=== PATIENT | male | born 1960 | race Caucasian/White ===

== ENCOUNTER 2021-04-06 15:19 | Observation (INO) | payer MEDICAID ==
--- NOTE | 2021-04-06 15:42 | EDM.PDOC ---
ED HPI GENERAL MEDICAL PROBLEM - General Chief Complaint: Skin Complaint Stated Complaint: Nonhealing wound to the abdomen Time Seen by Provider: 04/06/21 15:30 Source of Information: Reports: Patient, EMS History Limitations: Reports: No Limitations - History of Present Illness INITIAL COMMENTS - FREE TEXT/NARRATIVE: Patient states he was seen by home health today in regards to an ongoing abdominal skin wound that is been going on for the last several months. He just finished 2 weeks worth of antibiotics about 2 weeks ago Keflex and states it did not help any. Home health today told him to come through the ER to get examined. Home health called and gave us report with the patient stating he had some shortness of breath as well. Per the patient he has no chest pain or shortness of breath other than his chronic shortness of breath this is nothing new nor is it gotten any worse. He states he has been eating drinking okay with no issues he denies any fever or chills he admits he does not go to the doctor as he is supposed to but he is okay with trying to get this thing cleared up now. He has no other complaints. Says blood sugars have been relatively normal Duration: Chronic Location: Reports: Abdomen Quality: Reports: Other (Negative pain) Improves with: Reports: None Worsens with: Reports: None Associated Symptoms: Reports: No Other Symptoms - Related Data Allergies Allergy/AdvReac Type Severity Reaction Status Date / Time No Known Allergies Allergy Verified 04/06/21 16:48 Home Meds: Home Meds Aspirin 81 mg PO DAILY 04/06/21 [History] Cholecalciferol (Vitamin D3) [Vitamin D3] 25 mcg PO BID 04/06/21 [History] Doxazosin [Doxazosin Mesylate] 8 mg PO BEDTIME 04/06/21 [History] Escitalopram Oxalate [Lexapro] 20 mg PO DAILY 04/06/21 [History] Ferrous Sulfate [Iron] 325 mg PO DAILY 04/06/21 [History] Fluticasone Propionate [Flonase] 1 spray NASBOTH BID PRN 04/06/21 [History] Insuln Asp Prot/Insulin Aspart [NovoLOG Mix 70-30] 60 unit SQ BID 04/06/21 [History] Loratadine [Claritin] 10 mg PO DAILY PRN 04/06/21 [History] Losartan Potassium 100 mg PO DAILY 04/06/21 [History] Metoprolol Succinate [Toprol XL 100mg] 100 mg PO DAILY 04/06/21 [History] Multivitamin-Min/Iron/FA/Vit K [Multi-Day Plus Minerals Tablet] 1 each PO DAILY 04/06/21 [History] Spironolactone [Aldactone] 50 mg PO DAILY 04/06/21 [History] atorvaSTATin [Lipitor] 10 mg PO BEDTIME 04/06/21 [History] metFORMIN HCl [Metformin HCl] 1,000 mg PO BID 04/06/21 [History] ED ROS GENERAL - Review of Systems Review Of Systems: See Below Constitutional: Reports: No Symptoms HEENT: Reports: No Symptoms Respiratory: Reports: No Symptoms, Shortness of Breath, Other (Shortness of breath is chronic no new changes patient actually states his legs look better last couple days then a half in regards to pedal edema) Cardiovascular: Reports: No Symptoms Endocrine: Reports: No Symptoms GI/Abdominal: Reports: No Symptoms : Reports: No Symptoms Musculoskeletal: Reports: No Symptoms Skin: Reports: Wound (See HPI), Other Neurological: Reports: No Symptoms Psychiatric: Reports: No Symptoms Hematologic/Lymphatic: Reports: No Symptoms Immunologic: Reports: No Symptoms ED EXAM, SKIN/RASH Exam: See Below Exam Limited By: No Limitations General Appearance: Alert, WD/WN, No Apparent Distress Eye Exam: Bilateral Eye: Normal Inspection, PERRL Ears: Hearing Grossly Normal Nose: Normal Inspection, Normal Mucosa, No Blood, Other (mmm) Throat/Mouth: Normal Inspection, Normal Lips, Normal Teeth, Normal Gums, Normal Oropharynx, Normal Voice, No Airway Compromise Head: Atraumatic, Normocephalic Neck: Normal Inspection, Supple, Non-Tender, Full Range of Motion Respiratory/Chest: No Respiratory Distress, Lungs Clear, Normal Breath Sounds, No Accessory Muscle Use, Chest Non-Tender Cardiovascular: Normal Peripheral Pulses, Regular Rate, Rhythm, No Edema, No Gallop, No JVD, No Murmur, No Rub GI/Abdominal: Normal Bowel Sounds, Soft, Non-Tender, No Distention, Other (Patient has a significant abdominal wall hernia there is approximately volleyball size macerated erythematous wound at the inferior aspect of the hernia/abdomen patient has positive bowel sounds throughout all quadrants and no tenderness palpation). No: No Mass, Guarding, Rigid, Rebound, Tender (Male) Exam: No Hernia, Other (No noted ulceration rashes to the pannus area or the area) Back Exam: Full Range of Motion Extremities: Normal Inspection, Normal Range of Motion, Non-Tender, Normal Capillary Refill. No: Pedal Edema (+1 bilateral pedal edema) Neurological: Alert, Oriented, CN II-XII Intact, Normal Cognition, No Motor/Sensory Deficits Psychiatric: Normal Affect, Normal Mood Skin: Wound/Incision Location, Skin: Abdomen Characteristics: Erythematous Associated features: Inflammation, Weeping. No: Warmth, Tenderness, Induration, Lymphangitis, Rough Lymphatic: No Adenopathy Course - Vital Signs Text/Narrative:: will order wound cultures BC BMP CRP White blood cell count within normal limits BMP within normal limits CRP is mildly elevated Spoke with the primary care provider she would like the patient to possibly be evaluated by bariatric surgery or general surgery and wound care in [place] if possible or at another facility if any availability or if nothing else could be obtained possible admission here [place] does not have any beds availability tried [facility] no beds available Spoke with [place] surgeon Dr. Pace he states this is more than they can handle with their capabilities he recommended trying to get the patient seen by Dr. Parker in [place] Spoke with Dr. Tracy Rahman she will put the patient in November for further consultation with surgery/wound care Last Recorded V/S: Last Vital Signs Temp 37.1 C 04/06/21 15:25 Pulse 59 L 04/06/21 15:25 Resp 24 H 04/06/21 15:25 BP 143/79 H 04/06/21 15:25 Pulse Ox 96 04/06/21 15:25 - Orders/Labs/Meds Orders: Active Orders 24 hr Category Date Time Status CULTURE WOUND [RM] Stat Lab 04/06/21 15:42 Received Labs: Laboratory Tests 04/06/21 04/06/21 Range/Units 15:28 15:28 WBC 6.6 (4.0-10.0) x10^3/uL RBC 4.60 (4.5-6.0) x10^6/uL Hgb 12.0 L (14.0-18.0) g/dL Hct 37.1 L (40.0-52.0) % MCV 80.7 (78.0-93.0) fL MCH 26.1 (26.0-32.0) pg MCHC 32.3 (32.0-36.0) g/dL RDW Coeff of Cristina 14.8 (10.0-15.0) % Plt Count 370 (130-400) x10^3/uL Immature Gran % (Auto) 0.20 (0.00-0.43) % Neut % (Auto) 64.6 (50.0-80.0) % Lymph % (Auto) 17.0 L (25.0-50.0) % [place] % (Auto) 13.3 H (2.0-11.0) % Eos % (Auto) 4.4 H (0.0-4.0) % Baso % (Auto) 0.5 (0.2-1.2) % Neut # (Auto) 4.3 (1.8-7.7) x10^3/uL Lymph # (Auto) 1.1 (1.0-4.8) x10^3/uL [place] # (Auto) 0.9 H (0.0-0.8) x10^3/uL Eos # (Auto) 0.3 (0.0-0.5) x10^3/uL Baso # (Auto) 0.0 (0.0-0.2) x10^3/uL Immature Gran # (Auto) 0.01 (0.00-0.07) x10^3/uL Sodium 139 (136-145) mmol/L Potassium 4.1 (3.5-5.1) mmol/L Chloride 101 (98-107) mmol/L Carbon Dioxide 33 H (21-32) mmol/L Anion Gap 9.1 (5-15) mmol/L BUN 16 (7-18) mg/dL Creatinine 1.0 (0.70-1.30) mg/dL Est Cr Clr Drug Dosing TNP Estimated GFR (MDRD) > 60 Glucose 90 (70-99) mg/dL Calcium 9.0 (8.5-10.1) mg/dL C-Reactive Protein 2.6 H (<=0.9) mg/dL Departure - Departure Time of Disposition: 17:50 Disposition: Refer to Observation Condition: Good Clinical Impression: Chronic abdominal wound infection, Abdominal hernia - Discharge Information Forms: ED Department Discharge Sepsis Event Note (ED) - Focused Exam Vital Signs: Vital Signs Temp Pulse Resp BP Pulse Ox 04/06/21 15:25 37.1 C 59 L 24 H 143/79 H 96 - Problem List & Annotations (1) Abdominal hernia SNOMED Code(s): 41743526 Code(s): K46.9 - UNSPECIFIED ABDOMINAL HERNIA WITHOUT OBSTRUCTION OR GANGRENE Status: Acute Current Visit: Yes (2) Chronic abdominal wound infection SNOMED Code(s): 009693880 Code(s): S31.109A - UNSP OPN WND ABD WALL, UNSP Q W/O PENET PERIT CAV, INIT; L08.9 - LOCAL INFECTION OF THE SKIN AND SUBCUTANEOUS TISSUE, UNSP Status: Acute Current Visit: Yes - My Orders Last 24 Hours: My Active Orders 04/06/21 15:42 CULTURE WOUND [RM] Stat - Assessment/Plan Last 24 Hours: My Active Orders 04/06/21 15:42 CULTURE WOUND [RM] Stat
[2021-04-06 16:50] LABS: ANION GAP 9.1 mmol/L (5-15); CHLORIDE,CL 101 mmol/L (98-107); SODIUM,NA 139 mmol/L (136-145)
[2021-04-06] MEDS ORDERED: Non-Formulary Medication 1 Each (Insuln Asp Prot/Insulin Aspart [Novolog Mix 70-30] 100 UN SQ SCH (20:15)
--- NOTE | 2021-04-06 20:20 | PCM.HP.2 ---
H&P History of Present Illness - General Date of Service: 04/06/21 Admit Problem/Dx: Admission Diagnosis/Problem Admission Diagnosis/Problem Wound of abdomen Source of Information: Patient History Limitations: Reports: No Limitations - History of Present Illness Initial Comments - Free Text/Narative: Mr. Worthy is a 60 yo male with PMH of a large abdominal wall hernia, obesity, HTN, anxiety/depression, anemia, and peripheral polyneuropathy who presented to the ER for evaluation of his abdominal wound at the recommendation of home health and his PCP. He notes that he has had the wound for at least 2 months. He has rare pain but it is not painful overall. He denies any fever or chills. He is not sure if he has redness and if the redness has been getting worse. Home health has been coming 1-2 times/week to do wound cares. He has had the hernia for years. He denies any concerns for constipation or diarrhea. This is the first time he has left his home in at least 2 years. - Related Data Allergies/Adverse Reactions: Allergies Allergy/AdvReac Type Severity Reaction Status Date / Time No Known Allergies Allergy Verified 04/06/21 16:48 Home Medications: Home Meds Aspirin 81 mg PO DAILY 04/06/21 [History] Cholecalciferol (Vitamin D3) [Vitamin D3] 25 mcg PO BID 04/06/21 [History] Doxazosin [Doxazosin Mesylate] 8 mg PO BEDTIME 04/06/21 [History] Escitalopram Oxalate [Lexapro] 20 mg PO DAILY 04/06/21 [History] Ferrous Sulfate [Iron] 325 mg PO DAILY 04/06/21 [History] Fluticasone Propionate [Flonase] 1 spray NASBOTH BID PRN 04/06/21 [History] Insuln Asp Prot/Insulin Aspart [NovoLOG Mix 70-30] 60 unit SQ BID 04/06/21 [History] Loratadine [Claritin] 10 mg PO DAILY PRN 04/06/21 [History] Losartan Potassium 100 mg PO DAILY 04/06/21 [History] Metoprolol Succinate [Toprol XL 100mg] 100 mg PO DAILY 04/06/21 [History] Multivitamin-Min/Iron/FA/Vit K [Multi-Day Plus Minerals Tablet] 1 each PO DAILY 04/06/21 [History] Spironolactone [Aldactone] 50 mg PO DAILY 04/06/21 [History] atorvaSTATin [Lipitor] 10 mg PO BEDTIME 04/06/21 [History] metFORMIN HCl [Metformin HCl] 1,000 mg PO BID 04/06/21 [History] Past Medical History HEENT History: Reports: None Cardiovascular History: Reports: High Cholesterol, Hypertension Respiratory History: Reports: Sleep Apnea Gastrointestinal History: Reports: None Genitourinary History: Reports: None Musculoskeletal History: Reports: None Neurological History: Reports: Neuropathy, Diabetic Psychiatric History: Reports: Anxiety, Depression Endocrine/Metabolic History: Reports: Diabetes, Type II, Obesity/BMI 30+ Hematologic History: Reports: Anemia Immunologic History: Reports: None Oncologic (Cancer) History: Reports: None Dermatologic History: Reports: None - Infectious Disease History Infectious Disease History: Reports: None - Past Surgical History HEENT Surgical History: Reports: Tonsillectomy Musculoskeletal Surgical History: Reports: Shoulder Surgery (right x 3) Social & Family History - Family History Oncologic: Reports: Lung - Tobacco Use Tobacco Use Status *Q: Never Tobacco User - Caffeine Use Caffeine Use: Reports: Coffee - Alcohol Use Alcohol Use History: No Alcohol Use in Last Twelve Months: No - Recreational Drug Use Recreational Drug Use: No - Living Situation & Occupation Living situation: Reports: Single, Alone Occupation: Retired H&P Review of Systems - Review of Systems: Review Of Systems: See Below General: Reports: No Symptoms HEENT: Reports: No Symptoms Pulmonary: Reports: No Symptoms Cardiovascular: Reports: No Symptoms Gastrointestinal: Reports: No Symptoms Genitourinary: Reports: No Symptoms Musculoskeletal: Reports: No Symptoms Skin: Reports: Wound Psychiatric: Reports: No Symptoms Exam - Exam Exam: See Below - Vital Signs Vital Signs: Last Vital Signs Temp 36.8 C 04/06/21 19:19 Pulse 60 04/06/21 19:19 Resp 20 04/06/21 19:19 BP 131/66 04/06/21 19:19 Pulse Ox 97 04/06/21 19:19 Weight: 197.313 kg - Exam General: Alert, Oriented, Cooperative HEENT: Conjunctiva Clear, Mucosa Moist & [place], Posterior Pharynx Clear, Pupils Equal, Pupils Reactive, TMs Clear Neck: Supple, Trachea Midline. No: Lymphadenopathy, Thyromegaly Lungs: Clear to Auscultation, Normal Respiratory Effort Cardiovascular: Regular Rate, Regular Rhythm, Normal S1, Normal S2 GI/Abdominal Exam: Normal Bowel Sounds, Soft, Non-Tender, No Organomegaly, Hernia (large ventral hernia) Extremities: Normal Inspection, Non-Tender, Pedal Edema (non-pitting bilateral) Peripheral Pulses: 2+: Radial (L), Radial (R) Skin: Warm, Dry, Intact Neuro Extensive - Mental Status: Alert, Oriented x3 - Patient Data Lab Results Last 24 hrs: Laboratory Results - last 24 hr 04/06/21 04/06/21 04/06/21 Range/Units 15:28 15:28 18:00 WBC 6.6 (4.0-10.0) x10^3/uL RBC 4.60 (4.5-6.0) x10^6/uL Hgb 12.0 L (14.0-18.0) g/dL Hct 37.1 L (40.0-52.0) % MCV 80.7 (78.0-93.0) fL MCH 26.1 (26.0-32.0) pg MCHC 32.3 (32.0-36.0) g/dL RDW Coeff of Cristina 14.8 (10.0-15.0) % Plt Count 370 (130-400) x10^3/uL Immature Gran % (Auto) 0.20 (0.00-0.43) % Neut % (Auto) 64.6 (50.0-80.0) % Lymph % (Auto) 17.0 L (25.0-50.0) % [place] % (Auto) 13.3 H (2.0-11.0) % Eos % (Auto) 4.4 H (0.0-4.0) % Baso % (Auto) 0.5 (0.2-1.2) % Neut # (Auto) 4.3 (1.8-7.7) x10^3/uL Lymph # (Auto) 1.1 (1.0-4.8) x10^3/uL [place] # (Auto) 0.9 H (0.0-0.8) x10^3/uL Eos # (Auto) 0.3 (0.0-0.5) x10^3/uL Baso # (Auto) 0.0 (0.0-0.2) x10^3/uL Immature Gran # (Auto) 0.01 (0.00-0.07) x10^3/uL Sodium 139 (136-145) mmol/L Potassium 4.1 (3.5-5.1) mmol/L Chloride 101 (98-107) mmol/L Carbon Dioxide 33 H (21-32) mmol/L Anion Gap 9.1 (5-15) mmol/L BUN 16 (7-18) mg/dL Creatinine 1.0 (0.70-1.30) mg/dL Est Cr Clr Drug Dosing TNP Estimated GFR (MDRD) > 60 Glucose 90 (70-99) mg/dL Calcium 9.0 (8.5-10.1) mg/dL C-Reactive Protein 2.6 H (<=0.9) mg/dL SARS CoV-2 RNA Rapid NUHA Negative (NEGATIVE) Result Diagrams: 04/06/21 15:28 04/06/21 15:28 Sepsis Event Note - Evaluation Sepsis Screening Result: No Definite Risk - Focused Exam Vital Signs: Vital Signs Temp Temp Pulse Resp BP Pulse Ox 04/06/21 19:19 36.8 C 60 20 131/66 97 04/06/21 15:25 37.1 C 59 L 24 H 143/79 H 96 *Q Meaningful Use (ADM) - VTE *Q VTE Anticoagulation Contraindications: Med/TX Not Indicated/Need - Problem List (1) Chronic abdominal wound infection SNOMED Code(s): 529089172 ICD Code: S31.109A - UNSP OPN WND ABD WALL, UNSP Q W/O PENET PERIT CAV, INIT; L08.9 - LOCAL INFECTION OF THE SKIN AND SUBCUTANEOUS TISSUE, UNSP Status: Chronic Current Visit: Yes (2) Abdominal hernia SNOMED Code(s): 90587952 ICD Code: K46.9 - UNSPECIFIED ABDOMINAL HERNIA WITHOUT OBSTRUCTION OR GANGRENE Status: Chronic Current Visit: Yes Qualifiers: Hernia type: ventral Obstruction and gangrene presence: without obstruction or gangrene Qualified Code(s): K43.9 - Ventral hernia without obstruction or gangrene (3) Obesity SNOMED Code(s): 870347003, 621024537 ICD Code: E66.9 - OBESITY, UNSPECIFIED Status: Chronic Current Visit: Yes Qualifiers: Obesity type: due to excess calories Obesity classification: adult class 3 (BMI >= 40) Serious obesity comorbidity presence: with serious comorbidity (4) Diabetes SNOMED Code(s): 09362522 ICD Code: E11.9 - TYPE 2 DIABETES MELLITUS WITHOUT COMPLICATIONS Status: Chronic Current Visit: Yes Qualifiers: Diabetes mellitus type: type 2 Diabetes mellitus long-term insulin use: with terminal operator use Diabetes mellitus complication status: with neurologic complications Diabetes mellitus complication detail: with polyneuropathy Qu alified Code(s): E11.42 - Type 2 diabetes mellitus with diabetic polyneuropathy; Z79.4 - custodial (current) use of insulin (5) Hypertension SNOMED Code(s): 92877244 ICD Code: I10 - ESSENTIAL (PRIMARY) HYPERTENSION Status: Chronic Current Visit: Yes Qualifiers: Hypertension type: primary hypertension Qualified Code(s): I10 - Essential (primary) hypertension (6) Anxiety with depression SNOMED Code(s): 417825658 ICD Code: F41.8 - OTHER SPECIFIED ANXIETY DISORDERS Status: Chronic Current Visit: Yes (7) Anemia SNOMED Code(s): 413287739 ICD Code: D64.9 - ANEMIA, UNSPECIFIED Status: Chronic Current Visit: Yes Qualifiers: Anemia type: unspecified type Qualified Code(s): D64.9 - Anemia, unspecifie d (8) Peripheral neuropathy SNOMED Code(s): 816333080 ICD Code: G62.9 - POLYNEUROPATHY, UNSPECIFIED Status: Chronic Current Visit: Yes Qualifiers: Peripheral neuropathy type: polyneuropathy associated with underlying disease Qualified Code(s): G63 - Polyneuropathy in diseases classified elsewhere Problem List Initiated/Reviewed/Updated: Yes Orders Last 24hrs: Active Orders 24 hr Category Date Time Status Patient Status [ADT] Stat ADT 04/06/21 17:54 Active Accu Check [Blood Glucose Check, Bedside] [RC] 07,17 Care 04/07/21 07:00 Active Notify Provider Vital Signs [RC] ASDIRECTED Care 04/06/21 20:11 Ordered Oxygen Therapy [RC] PRN Care 04/06/21 20:11 Ordered Up With Assistance [RC] ASDIRECTED Care 04/06/21 20:11 Ordered VTE/DVT Education [RC] PER UNIT ROUTINE Care 04/06/21 20:11 Ordered Vital Signs [RC] Q4H Care 04/06/21 20:11 Ordered [employer] Diet [DIET] Diet 04/06/21 Dinner Ordered CULTURE WOUND [RM] Stat Lab 04/06/21 15:42 Received Aspirin Med 04/07/21 08:00 Ordered 81 mg PO DAILY Doxazosin [Cardura] Med 04/06/21 20:13 Ordered 8 mg PO BEDTIME Escitalopram Oxalate [Lexapro] Med 04/07/21 08:00 Ordered 20 mg PO DAILY Insuln Asp Prot/Insulin Aspart [NovoLOG Mix 70-30] Med 04/06/21 20:15 Ordered 60 unit SQ BID Losartan Potassium [Losartan Potassium] Med 04/07/21 08:00 Ordered 100 mg PO DAILY Metoprolol Succinate [Toprol XL 100mg] Med 04/07/21 08:00 Ordered 100 mg PO DAILY Spironolactone [Aldactone] Med 04/07/21 08:00 Ordered 50 mg PO DAILY atorvaSTATin [Lipitor] Med 04/06/21 20:13 Ordered 10 mg PO BEDTIME metFORMIN HCl [Metformin HCl] Med 04/06/21 20:15 Ordered 1,000 mg PO BID Anticoagulation Contraindications VTE [AST] Per Unit Oth 04/06/21 20:11 Ordered Routine Resuscitation Status Routine Resus Stat 04/06/21 20:11 Ordered Medication Orders Aspirin (Aspirin 81 Mg Tab.Chew) 81 mg PO DAILY ISELA Atorvastatin Calcium (Atorvastatin 10 Mg Tab) 10 mg PO BEDTIME ISELA Non-Formulary Medication (Doxazosin [Cardura]) 8 mg PO BEDTIME ISELA Non-Formulary Medication (Escitalopram Oxalate [Lexapro]) 20 mg PO DAILY ISELA Non-Formulary Medication (Insuln Asp Prot/Insulin Aspart [Novolog Mix 70-30]) 60 unit SQ BID ISELA Non-Formulary Medication (Losartan Potassium [Losartan Potassium]) 100 mg PO DAILY ISELA Non-Formulary Medication (Metformin Hcl [Metformin Hcl]) 1,000 mg PO BID ISELA Assessment/Plan Comment:: 60 yo male admitted with a chronic abdominal wound related to a large hernia. No acute changes or evidence of infection. #1 Chronic abdominal wound #2 Ventral hernia - No evidence of active infection at this time. - Therefore, will not do any antibiotics. - This is more a chronic pressure wound related to his hernia. - Ideally will get him transferred to somewhere he can have wound consults and hernia surgery. Unclear if this will be able to done urgently but plan is to attempt this given patient's social situation and refusal to leave home for a number of years until now. - Will plan to keep wound clean/dry/covered with non-adherent gauze. #3 Obesity #4 Diabetes #5 HTN #6 Anxiety with depression #7 Anemia #8 Peripheral polyneuropathy - Hemoglobin stable. - Will check glucose BID. - Continue home medications except vitamins. Patient will be admitted to obs as he does not meet acute criteria. Discharge timing depends on ability to get him somewhere with specialty care. Continue home meds except vitamins and flonase. Code status is full - discussed on admission. No role for pharmacologic VTE prophylaxis due to anticipated short admission as well as patient being at his usual functional status. - Mortality Measure Prognosis:: Good
[2021-04-06] MEDS ORDERED: Insulin Glarg,Human.Rec.Analog 100 Unit/ML SUBCUT ONE ×2 (20:31→21:00)
[2021-04-06] MEDS ORDERED: Glucagon,Human Recombinant 1 MG Vial IM PRN (20:31)
[2021-04-06] MEDS ORDERED: 50% Dextrose in Water 50 ML Syringe IVPUSH PRN (20:31)
[2021-04-06] MEDS: Doxazosin 4 MG Tab PO SCH (20:42)
[2021-04-06] MEDS: metFORMIN 500 MG Tab PO SCH (20:43)
[2021-04-06] MEDS: atorvaSTATin 10 MG Tab PO SCH (20:43)
[2021-04-07] MEDS: metFORMIN 500 MG Tab PO SCH ×2 (07:41→17:59)
[2021-04-07] MEDS: Spironolactone 25 MG Tab PO SCH (07:41)
[2021-04-07] MEDS: Aspirin 81 MG Tab.Chew PO SCH (07:42)
[2021-04-07] MEDS: Citalopram 20 MG Tab PO SCH (07:42)
[2021-04-07] MEDS: Losartan 50 MG Tab PO SCH (07:42)
[2021-04-07] MEDS: Metoprolol Succinate 50 MG Tab.ER PO SCH (07:43)
--- NOTE | 2021-04-07 10:02 | CT ---
[id number] CT/CT Abdomen Pelvis WO IV EXAM: CT Abdomen Pelvis WO IV CLINICAL DATA: ABDOMINAL WALL HERNIA. COMPARISON STUDY: None. FINDINGS: Large ventral abdominal wall herniation containing majority of the bowel. This extends beyond the field of view of this examination. 92 x 52 x 61 mm hypodense lesion in the liver. Punctate area of mineralization along the superior medial aspect of the lesion. Although incompletely evaluated without contrast, internal mineralization can be seen with hemangioma. However hepatic neoplasm is not excluded on this examination. Right adrenal gland is normal. Right-sided nonobstructing nephrolithiasis. Largest calculus measures up to 9 mm. Left kidney demonstrates an exophytic 9 mm mass with lobulated. Density is similar to that of water suggesting a cyst. 20 x 25 x 29 mm retroperitoneal mass left of midline at the level of the left kidney most consistent with retroperitoneal lymphadenopathy. 40 x 46 x 44 mm mass in the rectum right of midline. Density is higher than that of water. Etiology is nonspecific. Differential diagnosis includes mesorectal lymphadenopathy. Cholelithiasis. No evidence of acute cholecystitis. IMPRESSION: Large bowel containing ventral abdominal wall herniation. Solid left retroperitoneal and mesorectal masses well. Findings are nonspecific but could represent lymphadenopathy. No obvious primary neoplasm identified. However, there is a 9 cm liver mass that is incompletely evaluated by lack of contrast. Additional evaluation is recommended. Consider liver protocol CT examination with without contrast the abdomen/pelvis. Bebeto Mora MD 04/07/21 1001 Thank you for allowing us to participate in the care of your patient.
--- NOTE | 2021-04-07 12:55 | PCM.PN ---
- General Info Date of Service: 04/07/21 Admission Dx/Problem (Free Text): Admission Diagnosis/Problem Admission Diagnosis/Problem Wound of abdomen Subjective Update: Ryan is a 60-year-old male with a past medical history of well-controlled type 2 diabetes, morbid obesity, hypertension, anxiety and depression who was ad admitted under observation status on 04/06/2021 for continued evaluation and treatment of his abdominal wound. Patient first noticed the wound in January thought that it was secondary to a couple scratches. Wound has continued to advance. He has asked been followed with home health for wound cares. We actually did do a trial of antibiotics outpatient as well after hearing from the home health nurses that they thought that it was infected. He did not have any response to this. I was updated last week that the wound was not responding to at home therapies and it appeared to be worsening. Upon home health arriving yesterday they noted that there is a lot of purulent drainage; decision was made to transfer him to the ER for further evaluation. Overall, evaluation in the ER was normal/negative other than the large wound overlying his ventral hernia. No abnormalities were noted on his blood work other than a mildly elevated CRP. He was admitted under observation status. He has done well overnight with no complaints today. I did call and speak with Dr. Castle (general surgery in [place]) who is known for undertaking complicated abdominal wall hernias. Agreed that we need to get a CT scan for possible perioperative planning. Did discuss that his BMI 60.2. CT scan was obtained this morning and was reviewed with Ryan on rounds over lunch. Did discuss that there is a large ventral wall hernia containing the majority of the bowel; this did extend but beyond the [id number] of the exam. I also discussed with him that there is multiple incidentalomas seen including a 9.2 x 5.2 x 6.1 cm hypodense lesion in the liver as well as some smaller lesions noted throughout the left retroperitoneal area as well as near the re ctum just right of the midline that are suspicious for lymphadenopathy. Discussed with her that I would likely want to do lab test to evaluate these lesions more detail. - Patient Data Vitals - Most Recent: Last Vital Signs Temp 97.9 F 04/07/21 09:57 Pulse 57 L 04/07/21 09:57 Resp 20 04/07/21 09:57 BP 104/59 L 04/07/21 09:57 Pulse Ox 95 04/07/21 09:57 Weight - Most Recent: 436 lb I&O - Last 24 Hours: Intake & Output 04/06/21 04/07/21 04/07/21 22:59 06:59 14:59 Intake Total 220 480 Balance 220 480 Lab Results Last 24 Hours: Laboratory Results - last 24 hr 04/06/21 04/06/21 04/06/21 Range/Units 15:28 15:28 18:00 WBC 6.6 (4.0-10.0) x10^3/uL RBC 4.60 (4.5-6.0) x10^6/uL Hgb 12.0 L (14.0-18.0) g/dL Hct 37.1 L (40.0-52.0) % MCV 80.7 (78.0-93.0) fL MCH 26.1 (26.0-32.0) pg MCHC 32.3 (32.0-36.0) g/dL RDW Coeff of Cristina 14.8 (10.0-15.0) % Plt Count 370 (130-400) x10^3/uL Immature Gran % (Auto) 0.20 (0.00-0.43) % Neut % (Auto) 64.6 (50.0-80.0) % Lymph % (Auto) 17.0 L (25.0-50.0) % [place] % (Auto) 13.3 H (2.0-11.0) % Eos % (Auto) 4.4 H (0.0-4.0) % Baso % (Auto) 0.5 (0.2-1.2) % Neut # (Auto) 4.3 (1.8-7.7) x10^3/uL Lymph # (Auto) 1.1 (1.0-4.8) x10^3/uL [place] # (Auto) 0.9 H (0.0-0.8) x10^3/uL Eos # (Auto) 0.3 (0.0-0.5) x10^3/uL Baso # (Auto) 0.0 (0.0-0.2) x10^3/uL Immature Gran # (Auto) 0.01 (0.00-0.07) x10^3/uL Sodium 139 (136-145) mmol/L Potassium 4.1 (3.5-5.1) mmol/L Chloride 101 (98-107) mmol/L Carbon Dioxide 33 H (21-32) mmol/L Anion Gap 9.1 (5-15) mmol/L BUN 16 (7-18) mg/dL Creatinine 1.0 (0.70-1.30) mg/dL Est Cr Clr Drug Dosing TNP Estimated GFR (MDRD) > 60 Glucose 90 (70-99) mg/dL POC Glucose (70-99) mg/dL Calcium 9.0 (8.5-10.1) mg/dL C-Reactive Protein 2.6 H (<=0.9) mg/dL SARS CoV-2 RNA Rapid NUHA Negative (NEGATIVE) 04/06/21 04/07/21 04/07/21 Range/Units 20:42 01:55 06:24 WBC (4.0-10.0) x10^3/uL RBC (4.5-6.0) x10^6/uL Hgb (14.0-18.0) g/dL Hct (40.0-52.0) % MCV (78.0-93.0) fL MCH (26.0-32.0) pg MCHC (32.0-36.0) g/dL RDW Coeff of Cristina (10.0-15.0) % Plt Count (130-400) x10^3/uL Immature Gran % (Auto) (0.00-0.43) % Neut % (Auto) (50.0-80.0) % Lymph % (Auto) (25.0-50.0) % [place] % (Auto) (2.0-11.0) % Eos % (Auto) (0.0-4.0) % Baso % (Auto) (0.2-1.2) % Neut # (Auto) (1.8-7.7) x10^3/uL Lymph # (Auto) (1.0-4.8) x10^3/uL [place] # (Auto) (0.0-0.8) x10^3/uL Eos # (Auto) (0.0-0.5) x10^3/uL Baso # (Auto) (0.0-0.2) x10^3/uL Immature Gran # (Auto) (0.00-0.07) x10^3/uL Sodium (136-145) mmol/L Potassium (3.5-5.1) mmol/L Chloride (98-107) mmol/L Carbon Dioxide (21-32) mmol/L Anion Gap (5-15) mmol/L BUN (7-18) mg/dL Creatinine (0.70-1.30) mg/dL Est Cr Clr Drug Dosing Estimated GFR (MDRD) Glucose (70-99) mg/dL POC Glucose 105 H 97 113 H (70-99) mg/dL Calcium (8.5-10.1) mg/dL C-Reactive Protein (<=0.9) mg/dL SARS CoV-2 RNA Rapid NUHA (NEGATIVE) Med Orders - Current: Current Medications Aspirin (Aspirin 81 Mg Tab.Chew) 81 mg PO DAILY [facility] Last Admin: 04/07/21 07:42 Dose: 81 mg Documented by: Atorvastatin Calcium (Atorvastatin 10 Mg Tab) 10 mg PO BEDTIME [facility] Last Admin: 04/06/21 20:43 Dose: 10 mg Documented by: Citalopram Hydrobromide (Citalopram 20 Mg Tab) 40 mg PO DAILY [facility] Last Admin: 04/07/21 07:42 Dose: 40 mg Documented by: Dextrose/Water (50% Dextrose In Water 50 Ml Syringe) 50 ml IVPUSH ASDIRECTED PRN PRN Reason: Hypoglycemia Doxazosin Mesylate (Doxazosin 4 Mg Tab) 8 mg PO BEDTIME [facility] Last Admin: 04/06/21 20:42 Dose: 8 mg Documented by: Glucagon (Glucagon,Human Recombinant 1 Mg Vial) 1 mg IM ASDIRECTED PRN PRN Reason: Hypoglycemia Losartan Potassium (Losartan 50 Mg Tab) 100 mg PO DAILY [facility] Last Admin: 04/07/21 07:42 Dose: 100 mg Documented by: Metformin HCl (Metformin 500 Mg Tab) 1,000 mg PO BIDMEALS [facility] Last Admin: 04/07/21 07:41 Dose: 1,000 mg Documented by: Metoprolol Succinate (Metoprolol Succinate 50 Mg Tab.Er) 100 mg PO DAILY [facility] Last Admin: 04/07/21 07:43 Dose: 100 mg Documented by: Non-Formulary Medication (Insuln Asp Prot/Insulin Aspart [Novolog Mix 70-30]) 60 unit SQ BID ISELA Spironolactone (Spironolactone 25 Mg Tab) 50 mg PO DAILY [facility] Last Admin: 04/07/21 07:41 Dose: 50 mg Documented by: Discontinued Medications Insulin Glargine (Insulin Glarg,Human.Rec.Analog 100 Unit/Ml) 30 unit SUBCUT ONETIME ONE Stop: 04/06/21 20:32 Last Admin: 04/06/21 21:12 Dose: Not Given Documented by: Insulin Glargine (Insulin Glarg,Human.Rec.Analog 100 Unit/Ml) 20 unit SUBCUT ONETIME ONE Stop: 04/06/21 21:01 Last Admin: 04/06/21 21:01 Dose: Not Given Documented by: - Patient Data Lab Results Last 24 hrs: Laboratory Results - last 24 hr 04/06/21 04/06/21 04/06/21 Range/Units 15:28 15:28 18:00 WBC 6.6 (4.0-10.0) x10^3/uL RBC 4.60 (4.5-6.0) x10^6/uL Hgb 12.0 L (14.0-18.0) g/dL Hct 37.1 L (40.0-52.0) % MCV 80.7 (78.0-93.0) fL MCH 26.1 (26.0-32.0) pg MCHC 32.3 (32.0-36.0) g/dL RDW Coeff of Cristina 14.8 (10.0-15.0) % Plt Count 370 (130-400) x10^3/uL Immature Gran % (Auto) 0.20 (0.00-0.43) % Neut % (Auto) 64.6 (50.0-80.0) % Lymph % (Auto) 17.0 L (25.0-50.0) % [place] % (Auto) 13.3 H (2.0-11.0) % Eos % (Auto) 4.4 H (0.0-4.0) % Baso % (Auto) 0.5 (0.2-1.2) % Neut # (Auto) 4.3 (1.8-7.7) x10^3/uL Lymph # (Auto) 1.1 (1.0-4.8) x10^3/uL [place] # (Auto) 0.9 H (0.0-0.8) x10^3/uL Eos # (Auto) 0.3 (0.0-0.5) x10^3/uL Baso # (Auto) 0.0 (0.0-0.2) x10^3/uL Immature Gran # (Auto) 0.01 (0.00-0.07) x10^3/uL Sodium 139 (136-145) mmol/L Potassium 4.1 (3.5-5.1) mmol/L Chloride 101 (98-107) mmol/L Carbon Dioxide 33 H (21-32) mmol/L Anion Gap 9.1 (5-15) mmol/L BUN 16 (7-18) mg/dL Creatinine 1.0 (0.70-1.30) mg/dL Est Cr Clr Drug Dosing TNP Estimated GFR (MDRD) > 60 Glucose 90 (70-99) mg/dL POC Glucose (70-99) mg/dL Calcium 9.0 (8.5-10.1) mg/dL C-Reactive Protein 2.6 H (<=0.9) mg/dL SARS CoV-2 RNA Rapid NUHA Negative (NEGATIVE) 04/06/21 04/07/21 04/07/21 Range/Units 20:42 01:55 06:24 WBC (4.0-10.0) x10^3/uL RBC (4.5-6.0) x10^6/uL Hgb (14.0-18.0) g/dL Hct (40.0-52.0) % MCV (78.0-93.0) fL MCH (26.0-32.0) pg MCHC (32.0-36.0) g/dL RDW Coeff of Cristina (10.0-15.0) % Plt Count (130-400) x10^3/uL Immature Gran % (Auto) (0.00-0.43) % Neut % (Auto) (50.0-80.0) % Lymph % (Auto) (25.0-50.0) % [place] % (Auto) (2.0-11.0) % Eos % (Auto) (0.0-4.0) % Baso % (Auto) (0.2-1.2) % Neut # (Auto) (1.8-7.7) x10^3/uL Lymph # (Auto) (1.0-4.8) x10^3/uL [place] # (Auto) (0.0-0.8) x10^3/uL Eos # (Auto) (0.0-0.5) x10^3/uL Baso # (Auto) (0.0-0.2) x10^3/uL Immature Gran # (Auto) (0.00-0.07) x10^3/uL Sodium (136-145) mmol/L Potassium (3.5-5.1) mmol/L Chloride (98-107) mmol/L Carbon Dioxide (21-32) mmol/L Anion Gap (5-15) mmol/L BUN (7-18) mg/dL Creatinine (0.70-1.30) mg/dL Est Cr Clr Drug Dosing Estimated GFR (MDRD) Glucose (70-99) mg/dL POC Glucose 105 H 97 113 H (70-99) mg/dL Calcium (8.5-10.1) mg/dL C-Reactive Protein (<=0.9) mg/dL SARS CoV-2 RNA Rapid NUHA (NEGATIVE) Result Diagrams: 04/06/21 15:28 04/06/21 15:28 Sepsis Event Note - Evaluation Sepsis Screening Result: No Definite Risk - Focused Exam Vital Signs: Vital Signs Temp Temp Pulse Pulse Resp BP BP 04/07/21 09:57 97.9 F 57 L 20 104/59 L 04/07/21 07:43 64 100/54 L 04/07/21 07:42 100/54 L 04/07/21 06:35 97.4 F 64 18 99/54 L 04/07/21 02:00 98.2 F 72 18 100/64 Pulse Ox 04/07/21 09:57 95 04/07/21 07:43 04/07/21 07:42 04/07/21 06:35 96 04/07/21 02:00 95 - Problem List & Annotations (1) Stage II pressure ulcer SNOMED Code(s): 404262614 Code(s): L89.92 - PRESSURE ULCER OF UNSPECIFIED SITE, STAGE 2 Status: Acute Current Visit: Yes (2) Abdominal hernia SNOMED Code(s): 42812274 Code(s): K46.9 - UNSPECIFIED ABDOMINAL HERNIA WITHOUT OBSTRUCTION OR GANGRENE Status: Chronic Current Visit: Yes Qualifiers: Hernia type: ventral Obstruction and gangrene presence: without obstruction or gangrene Qualified Code(s): K43.9 - Ventral hernia without obstruction or gangrene - Problem List Review Problem List Initiated/Reviewed/Updated: Yes - Plan Plan:: 60 yo male admitted with a chronic abdominal wound related to a large hernia. No acute changes or evidence of infection. #1 Chronic abdominal wound, Stage 2 pressure ulcer #2 Ventral hernia - No evidence of active infection at this time; no abx indicated Plan: -Spoke with Dr. Castle in [place]; CT scan obtained, awaiting call/message back in regards to care of the hernia as ultimately this will need to be fixed -Daily washing, semiocclusive dressing (hydrogels?) to be reapplied daily -Discussed that we are unlikely to be transferring urgently in the coming days this will likely require coordinated outpatient followup #3 Incidental Liver mass and lymphadenopathy - See on CT scan. Findings discussed with patient on rounds Plan: - CMP and CEA ordered today to further evaluate - Will likely need MRI, biopsy for further evaluation. Chronic: Obesity Diabetes HTN Anxiety with depression Anemia Peripheral polyneuropathy - Hemoglobin stable. - Will check glucose BID. - Continue home medications except vitamins. CODE: FULL DVT: patient ambulatory, short-term admit Diet: Diabetic Disposition: Plan for 1 more midnight under observation status for continued planning in regards to plan of care moving forward.
[2021-04-07 13:42] LABS: CHLORIDE,CL 99 mmol/L (98-107); SODIUM,NA 138 mmol/L (136-145)
[2021-04-07 13:53] LABS: ANION GAP 14.5 mmol/L (5-15)
[2021-04-07] MEDS: Doxazosin 4 MG Tab PO SCH (19:34)
[2021-04-07] MEDS: atorvaSTATin 10 MG Tab PO SCH (19:35)
[2021-04-08] MEDS: Aspirin 81 MG Tab.Chew PO SCH (07:43)
[2021-04-08] MEDS: metFORMIN 500 MG Tab PO SCH (07:44)
[2021-04-08] MEDS: Citalopram 20 MG Tab PO SCH (07:45)
[2021-04-08] MEDS: Losartan 50 MG Tab PO SCH (07:45)
[2021-04-08] MEDS: Spironolactone 25 MG Tab PO SCH (07:45)
[2021-04-08] MEDS: Metoprolol Succinate 50 MG Tab.ER PO SCH (07:45)
--- NOTE | 2021-04-08 10:06 | PCM.DCSUM1 ---
Discharge Summary - Hospital Course Free Text/Narrative:: Ryan is a 60-year-old male with a past medical history of well-controlled type 2 diabetes, morbid obesity, hypertension, anxiety and depression who was ad admitted under observation status on 04/06/2021 for continued evaluation and treatment of his abdominal wound. Patient first noticed the wound in January thought that it was secondary to a couple scratches. Wound has continued to advance. He has asked been followed with home health for wound cares. We actually did do a trial of antibiotics outpatient as well after hearing from the home health nurses that they thought that it was infected. He did not have any response to this. I was updated last week that the wound was not responding to at home therapies and it appeared to be worsening. Upon home health arriving yesterday they noted that there is a lot of purulent drainage; decision was made to transfer him to the ER for further evaluation. Overall, evaluation in the ER was normal/negative other than the large wound overlying his ventral hernia. No abnormalities were noted on his blood work other than a mildly elevated CRP. He was admitted under observation status. He has done well overnight with no complaints today. I did call and speak with Dr. Castle (general surgery in [place]) who is known for undertaking complicated abdominal wall hernias. Unfortunately, after reviewing the CT he does not feel like it be able to undertake Ryan's case due to the large size as well as the fact that the hernias contains almost all of his bowels. Did recommend that we potentially refer to the [facility] or [place] for further specialty care of this. This morning I reached out to the naval architect specialist at [facility] to get further instruction on plan of care for his abdominal wound they did recommend doing aVashewash daily, applying Xeroform within the wound, Biotene over top of this and then an ABD dressing. They recommend daily dressings of this. They also recommended potentially putting an abdominal binder on to try to relieve the pressure. They have had similar patients in the past and would not necessarily call this a pressure ulcer but more so secondary to the stretching of the skin. Also recommended not letting tap water or shower water into the wound as this may introduce other pathogens. If he does develop any green to blue-tinged discharge which would be concerning for Pseudomonas they would recommend switching from a Vashewash to acetic acid wash. Lastly, we did discuss that the incidental findings on the CT scan of the liver mass as well as the other 2 lymph nodes will need to be worked up in more detail. Thankfully, his CEA came back at 1.3 which is well below the upper limit of normal for her testing. His AST and ALT were both normal as well. His albumin is a little bit low at 2.5 which will delay wound healing. We will encourage him to increase his protein intake at home. Ultimately, I will be messaging interventional radiology to take a look at his images for consideration of tissue biopsy. We will see him for a clinic visit in about 2 weeks time. This will likely need to be a video visit. - Discharge Data Discharge Date: 04/08/21 Discharge Disposition: Home, W Home Health Agency 06 Condition: Good - Referral to Home Health Date of Face to Face Encounter: 04/08/21 Reason for Homebound Status: Inability to leave the home without assistance Primary Care Physician: Caite Garcia MD Skilled Need: Nursing/wound cares, nurse aid, PT/OT - Discharge Diagnosis/Problem(s) (1) Stage II pressure ulcer SNOMED Code(s): 718340082 ICD Code: L89.92 - PRESSURE ULCER OF UNSPECIFIED SITE, STAGE 2 Status: Acute Current Visit: Yes (2) Abdominal hernia SNOMED Code(s): 71858402 ICD Code: K46.9 - UNSPECIFIED ABDOMINAL HERNIA WITHOUT OBSTRUCTION OR GANGRENE Status: Chronic Current Visit: Yes Qualifiers: Hernia type: ventral Obstruction and gangrene presence: without obstruction or gangrene Qualified Code(s): K43.9 - Ventral hernia without obstruction or gangrene - Discharge Plan Home Medications: Home Meds Aspirin 81 mg PO DAILY 04/06/21 [History] Cholecalciferol (Vitamin D3) [Vitamin D3] 25 mcg PO BID 04/06/21 [History] Doxazosin [Cardura] 8 mg PO BEDTIME 04/06/21 [History] Escitalopram Oxalate [Lexapro] 20 mg PO DAILY 04/06/21 [History] Ferrous Sulfate [Iron] 325 mg PO DAILY 04/06/21 [History] Fluticasone Propionate [Flonase] 1 spray NASBOTH BID PRN 04/06/21 [History] Insuln Asp Prot/Insulin Aspart [NovoLOG Mix 70-30] 60 unit SQ BID 04/06/21 [History] Loratadine [Claritin] 10 mg PO DAILY PRN 04/06/21 [History] Losartan Potassium 100 mg PO DAILY 04/06/21 [History] Metoprolol Succinate [Toprol XL 100mg] 100 mg PO DAILY 04/06/21 [History] Multivitamin-Min/Iron/FA/Vit K [Multi-Day Plus Minerals Tablet] 1 tab PO DAILY 04/06/21 [History] Spironolactone [Aldactone] 50 mg PO DAILY 04/06/21 [History] atorvaSTATin [Lipitor] 10 mg PO BEDTIME 04/06/21 [History] metFORMIN HCl [Metformin HCl] 1,000 mg PO BID 04/06/21 [History] hydroCHLOROthiazide [Hydrochlorothiazide] 25 mg PO DAILY 04/07/21 [History] Forms: ED Department Discharge Referrals: Catie Garcia MD [Primary Care Provider] - 04/19/21 1:30 pm (You have a follow up appt. with Dr. Eulalia Garcia on April 19, 2021 at 1:30pm---[facility]. Please wear a mask to your appt.) - Discharge Summary/Plan Comment DC Time >30 min.: Yes (40min: coordination of care ) Total # of Minutes for Discharge Time: 40 - General Info Functional Status: Reports: Pain Controlled - Review of Systems General: Reports: No Symptoms HEENT: Reports: No Symptoms Pulmonary: Reports: Shortness of Breath (chronic) Cardiovascular: Reports: No Symptoms Gastrointestinal: Reports: No Symptoms Genitourinary: Reports: No Symptoms Musculoskeletal: Reports: No Symptoms - Patient Data Vitals - Most Recent: Last Vital Signs Temp 96.4 F L 04/08/21 09:37 Pulse 54 L 04/08/21 09:37 Resp 17 04/08/21 09:37 BP 121/62 04/08/21 09:37 Pulse Ox 94 L 04/08/21 09:37 Weight - Most Recent: 436 lb I&O - Last 24 hours: Intake & Output 04/07/21 04/08/21 04/08/21 22:59 06:59 14:59 Intake Total 240 200 240 Balance 240 200 240 Lab Results - Last 24 hrs: Laboratory Results - last 24 hr 04/07/21 04/07/21 04/07/21 Range/Units 13:15 13:15 16:42 Sodium 138 (136-145) mmol/L Potassium 4.5 (3.5-5.1) mmol/L Chloride 99 (98-107) mmol/L Carbon Dioxide 29 (21-32) mmol/L Anion Gap 14.5 (5-15) mmol/L BUN 16 (7-18) mg/dL Creatinine 1.0 (0.70-1.30) mg/dL Est Cr Clr Drug Dosing 84.71 mL/min Estimated GFR (MDRD) > 60 Glucose 131 H (70-99) mg/dL POC Glucose 115 H (70-99) mg/dL Calcium 8.9 (8.5-10.1) mg/dL Corrected Calcium 10.1 (8.5-10.1) mg/dL Total Bilirubin 0.4 (0.2-1.0) mg/dL AST 10 L (15-37) U/L ALT 11 L (16-63) U/L Alkaline Phosphatase 67 (46-116) U/L Total Protein 7.0 (6.4-8.2) g/dL Albumin 2.5 L (3.4-5.0) g/dL Globulin 4.5 Albumin/Globulin Ratio 0.56 Carcinoembryonic Ag 1.3 (0.0-3.0) ng/mL 04/08/21 Range/Units 06:24 Sodium (136-145) mmol/L Potassium (3.5-5.1) mmol/L Chloride (98-107) mmol/L Carbon Dioxide (21-32) mmol/L Anion Gap (5-15) mmol/L BUN (7-18) mg/dL Creatinine (0.70-1.30) mg/dL Est Cr Clr Drug Dosing mL/min Estimated GFR (MDRD) Glucose (70-99) mg/dL POC Glucose 124 H (70-99) mg/dL Calcium (8.5-10.1) mg/dL Corrected Calcium (8.5-10.1) mg/dL Total Bilirubin (0.2-1.0) mg/dL AST (15-37) U/L ALT (16-63) U/L Alkaline Phosphatase (46-116) U/L Total Protein (6.4-8.2) g/dL Albumin (3.4-5.0) g/dL Globulin Albumin/Globulin Ratio Carcinoembryonic Ag (0.0-3.0) ng/mL [id number] Results - Last 24 hrs: Microbiology 04/06/21 15:42 Wound Culture - Preliminary Abdomen - Drainage Staphylococcus Aureus Med Orders - Current: Current Medications Aspirin (Aspirin 81 Mg Tab.Chew) 81 mg PO DAILY [facility] Last Admin: 04/08/21 07:43 Dose: 81 mg Documented by: Atorvastatin Calcium (Atorvastatin 10 Mg Tab) 10 mg PO BEDTIME [facility] Last Admin: 04/07/21 19:35 Dose: 10 mg Documented by: Citalopram Hydrobromide (Citalopram 20 Mg Tab) 40 mg PO DAILY [facility] Last Admin: 04/08/21 07:45 Dose: 40 mg Documented by: Dextrose/Water (50% Dextrose In Water 50 Ml Syringe) 50 ml IVPUSH ASDIRECTED PRN PRN Reason: Hypoglycemia Doxazosin Mesylate (Doxazosin 4 Mg Tab) 8 mg PO BEDTIME [facility] Last Admin: 04/07/21 19:34 Dose: 8 mg Documented by: Glucagon (Glucagon,Human Recombinant 1 Mg Vial) 1 mg IM ASDIRECTED PRN PRN Reason: Hypoglycemia Losartan Potassium (Losartan 50 Mg Tab) 100 mg PO DAILY [facility] Last Admin: 04/08/21 07:45 Dose: Not Given Documented by: Metformin HCl (Metformin 500 Mg Tab) 1,000 mg PO BIDMEALS [facility] Last Admin: 04/08/21 07:44 Dose: 1,000 mg Documented by: Metoprolol Succinate (Metoprolol Succinate 50 Mg Tab.Er) 100 mg PO DAILY [facility] Last Admin: 04/08/21 07:45 Dose: Not Given Documented by: Non-Formulary Medication (Insuln Asp Prot/Insulin Aspart [Novolog Mix 70-30]) 60 unit SQ BID [facility] Spironolactone (Spironolactone 25 Mg Tab) 50 mg PO DAILY [facility] Last Admin: 04/08/21 07:45 Dose: 50 mg Documented by: Discontinued Medications Insulin Glargine (Insulin Glarg,Human.Rec.Analog 100 Unit/Ml) 30 unit SUBCUT ONETIME ONE Stop: 04/06/21 20:32 Last Admin: 04/06/21 21:12 Dose: Not Given Documented by: Insulin Glargine (Insulin Glarg,Human.Rec.Analog 100 Unit/Ml) 20 unit SUBCUT ONETIME ONE Stop: 04/06/21 21:01 Last Admin: 04/06/21 21:01 Dose: Not Given Documented by: - Exam General: Reports: Alert, Oriented HEENT: Reports: Mucous Membr. Moist/[place] Neck: Reports: Supple Lungs: Reports: Clear to Auscultation, Normal Respiratory Effort Cardiovascular: Reports: Regular Rate, Regular Rhythm GI/Abdominal Exam: Soft, Non-Tender, Hernia (large ventral hernia) Extremities: Non-Tender Skin: Reports: Warm, Dry, Other (abdominal wall wounds similar in appearance to yesterday) Neurological: Reports: No New Focal Deficit Psy/Mental Status: Reports: Alert, Normal Affect, Normal Mood *Q Meaningful Use (DIS) - VTE *Q VTE Anticoagulation Contraindications: Med/TX Not Indicated/Need
== END 2021-04-08 13:28 | disposition home health service (06) ==
LOC: VM.ED 15:19 → VM.MS 17:54
PROVIDERS: ADMIT Physician Assistant Medical; ATTEND Family Medicine
DX: S31.109A Unspecified open wound of abdominal wall, unspecified quadrant without penetration into peritoneal cavity, initial encounter (principal); I10 Essential (primary) hypertension; L89.92 Pressure ulcer of unspecified site, stage 2; F32.A Depression, unspecified; E78.00 Pure hypercholesterolemia, unspecified; G47.30 Sleep apnea, unspecified; E11.42 Type 2 diabetes mellitus with diabetic polyneuropathy; F41.8 Other specified anxiety disorders; D64.9 Anemia, unspecified; K43.9 Ventral hernia without obstruction or gangrene; E66.01 Morbid (severe) obesity due to excess calories; Z79.82 Long term (current) use of aspirin; Z79.899 Other long term (current) drug therapy; Z79.84 Long term (current) use of oral hypoglycemic drugs; Z79.4 Long term (current) use of insulin; Z98.890 Other specified postprocedural states; Z20.822 Contact with and (suspected) exposure to COVID-19
CPT/HCPCS: 36415; 74176; 80048; 80053; 82378; 82947; 85025; 86140; 87070; 87077; 87186; 99283; 99285-25; A9270-GY; G0378; U0002